=== PATIENT | male | born 1950 | race Caucasian/White ===

== ENCOUNTER 2024-06-02 02:10 | Outpatient (CLI) | payer MEDICARE, SELFPAY ==
--- NOTE | 2024-06-02 14:25 | ST.MBS_ITS ---
Date of Service Date of service: 06/02/24 Time of Service: 15:44 Modified Barium Swallow Study Findings: Video fluoroscopic Swallowing Evaluation (VFSE) / Modified Barium Swallow Study (MBSS) Speech Language Pathology Report Patient referred for VFSE/MBSS from Dr. Mathews ([facility]) given history of resection of SSC of tongue base with feeding tube reliance. 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 From this he developed bilateral hearing loss and peripheral neuropathy. In 2013 he was taken to OR for left segmental mandibulectomy and reconstruction with fibula free flap due to [id number]. 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 In 2023, he presented with new squamous cell carcinoma of R posterior mobile tongue extending into R tongue base. 01/05/2024 underwent glossectomy, neck dissection and flap reconstruction. He has a tracheostomy tube and is followed by [facility] via [facility]. He was cleared by ENT for PO intake on 04/27/2024 but only tolerates liquids at this time and is reliant on feeding tube. He had some wound issues of pharynx and trach site and underwent HBOT during recovery from surgery. Per treating [facility], his trach placement was difficult and reportedly is off-center, making it very uncomfortable to swallow. Although trach has been capped since he was discharged home from surgery, his medical team has opted to leave it in all this time until need for further procedures is fully eliminated, as they feel it would be very difficult to re- trach him. He is now awaiting a pacemaker change at which point ENT will approve him for trach removal. Additional relevant PMHx: Esophageal dysphagia DM2 Memory difficulties Trismus CKD IMPRESSIONS: Swallow safety is impaired; swallow efficiency is impaired. Severe chronic oropharyngeal dysphagia. Characterized by poor/absent posterior lingual transit, poor tongue base retraction, reduced pharyngeal stripping wave and limited UES distension. While there were mild-moderate pharyngeal deficits, hyo-laryngeal movement was relatively well preserved functionally and laryngeal vestibule closure was very strong. While there was some shallow anterior supraglottic penetration, this did not reach the level of the vocal folds and was ejected easily, often spontaneously by swallow completion, or by gentle cued throat clear. Patient relied on posterior head tilt and gradual spillage of liquid bolus into pyriform sinus in order to initiate pharyngeal swallow. Significant post-swallow hyperpharyngeal residue for liquid bolus resulted in need for multiple swallows with extra time to allow residue to descend gradually into pyriforms before able to pass through UES with secondary swallows. For puree bolus, patient was unable to transit this past posterior mobile tongue even with liquid wash and required suction to remove oral residue. Only minimal/negligible amounts of puree were swallowed with the aid of liquid wash despite multiple attempts. Patient may benefit from trials of more slick puree or moderately thick liquids. Patient appears to be at low risk for potential aspiration PNA and/or pulmonary compromise and high risk for malnutrition, moderate risk for dehydration. Diet modification is indicated; non-oral nutrition is indicated. Suspect patient could improve oral intake amounts gradually if working diligently with [facility] on liquid intake/efficiency. May see further improvements with further healing/resolution of edema, removal of trach, and continued therapeutic PO intake with [facility]. Recommend repeat MBSS in 3+ months once trach is removed. Swallow prognosis is guarded given: Positive prognostic factors: Motivation, Family/caregiver support, Negative prognostic factors: Age, Severity, Surgical/anatomical factors, Ineffectiveness of trialed compensatory strategies, and pending patient/caregiver training in risk management as outlined, including use of trialed compensatory strategies. RECOMMENDATIONS: Diet Texture Recommendation for supplemental PO intake:? IDDSI LEVEL SOLIDS 3-Liquidized Solids or 4-[place] Purees (therapeutic trials) LIQUIDS 0-Thin Liquids Please see further details at?[email or web address].iddsi.org [email or web address] MEDICATIONS VIA ENTERAL ROUTE Diet texture modification is per patient's preference; please adjust diet textures at patient's discretion & collaboration with care team. Do not alter medications (e.g., cut)? without advice from your MD or pharmacist. Risk Management Strategies:? Behavioral reflux precautions, including upright position during + 90 mins after meals. Perform posterior head tilt Small sips, approx 10 mL Multiple swallows per bolus (3+) to encourage clearance of pharyngeal stasis/residue When taking multiple sips liquids, perform gentle intermittent throat clear. Control risk factors for aspiration pneumonia via (a) thorough oral hygiene & (b) maintaining physical mobility as tolerated PLAN: Therapy: May consider the following: Targeted Oropharyngeal Exercise per treating [facility], Further Compensatory Strategy Training, Further Training/Education in Risk Management, Further Counseling re: Options for maintaining quality of life in context of dysphagia presentation Goals: Defer to treating clinician Follow-up exam: Recommend repeat VFSE/MBSS in 3+ months. ----- OBJECTIVE Videofluoroscopic Swallow Evaluation (VFSE/MBSS) was conducted in the lateral and [id number] projection by Speech-Language Pathologist, in collaboration with Radiologist, to evaluate oropharyngeal swallow function. Anatomic view under fluoroscopy: Mandibular hardware visible. Trach tube vi sible. Surgical clips visible throughout pharynx and floor of mouth. 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 PO Barium Contrast Trials Oral barium water-soluble contrast was administered as follows: IDDSI Level 0 Varibar thin liquid (40% w/v) IDDSI Level 2 Varibar nectar thick/mildly thick liquid (40% w/v) IDDSI Level 3 Varibar thin honey/liquidised/moderately-thick (40% w/v) IDDSI Level 4 Varibar pudding/pureed/extremely thick (40% w/v) MBSImP Component Scores: COMPONENT Scale SCORE 1 Lip closure (0-4) 1 Resulted in interlabial escape, without progression to anterior lip 2 Hold Position (0-3) 3 Allowed posterior escape of greater than half of the bolus 3 Bolus Preparation (0-4) 4 Solid withheld due to patient safety concerns related to oral impairment 4 Bolus Transport (0-4) 4 Yielded only minimal to no tongue motion 5 Oral Residue (0-4) 3 2 Was the majority of bolus remaining (puree, moderately thick liquid) Was A collection of residue on oral structures (mild thick, thin liquids) 6 Swallow Initiation (0-4) 3 Occurred when the bolus head was in the pyriform sinuses 7 Soft Palate Elevation (0-4) 0 Resulted in no bolus between soft palate and t he pharyngeal wall 8 Laryngeal Elevation (0-3) 1 Was decreased with partial superior movement of thyroid cartilage/partial approximation of arytenoids to epiglottic petiole 9 Anterior Hyoid Motion (0-2) 1 Demonstrated partial anterior movement 10 Epiglottic Movement (0-2) 2 Resulted in no inversion 11 Laryngeal Closure (0-2) 1 Was incomplete with narrow a column of air/contra st in laryngeal vestibule 12 Pharyngeal Stripping Wave (0-2) 1 Was present, but diminished 13 Pharyngeal Contraction (0-3) 1 Was incomplete, with presence of pseudodiverticulae 14 PES Opening (0-3) 1 Demonstrated partial distension/partial duration, with partial obstruction of flow 15 Tongue Base Retraction (0-4) 3 Allowed a wide column of contrast or air between the retracted tongue base and the posterior pharyngeal wall 16 Pharyngeal Residue (0-4) 2 Was a collection of residue within or on pharyngeal structures 17 Esophageal Clearance (0-4) NA Results: COMPONENT Scale SCORE 1 Oral Score (0-18) 16 2 Pharyngeal Score (0-29) 13 3 Esophageal Score (0-4) 0 Penetration-Aspiration Scale: COMPONENT Scale SCORE 1 Thin liquid (1-8) 2 Contrast entered the airway, remained above the vocal folds, and was ejected from the airway. 2 [place] thick (1-8) 2 Contrast entered the airway, remained above the vocal folds, and was ejected from the airway. 3 Honey thick (1-8) 3 Contrast entered the airway, remained above the vocal folds, and was not ejected from the airway. 4 Pudding thick (1-8) 1 Contrast did not enter the airway 5 Cookie (1-8) NA DIGEST: COMPONENT Scale SCORE 1 Thin Max PAS (1-8) 2 Contrast entered the airway, remained above the vocal folds, and was ejected from the airway. 2 [place] Max PAS (1-8) 2 Contrast entered the airway, remained above the vocal folds, and was ejected from the airway. 3 Honey Max PAS (1-8) 3 Contrast entered the airway, remained above the vocal folds, and was not ejected from the airway. 4 Liquid Max PAS (1-8) 3 Maximum PAS Score over all liquid trials 5 Liquid Max Residue (0-3) 1 10 - 49% 6 Pudding Max PAS (1-8) 1 Contrast did not enter the airway 7 Pudding Max Residue (0-3) 2 50 - 90% 8 Cracker Max PAS (1-8) NA 9 Cracker Max Residue (0-3) NA 10 Frequency if PAS >= 3 (0-3) 2 Intermittent (under 50% of trials on a single consistency) 11 Amount if PAS >= 5 (0-1) NA Results: COMPONENT Scale SCORE 1 SAFETY GRADE (0-4) 1 Safety grade for swallowing based on patterns of aspi ration or laryngeal penetration 2 EFFICIENCY GRADE (0-4) 3 Efficiency grade of swallowing based on patterns of pharyngeal residue 3 DIGEST (0-4) 2 Severity grade of pharyngeal dysphagia: 0 - Normal, 1 - Mild, 2 - Moderate, 3 - Severe, 4 - Life threa tening 4 Max Exam PAS (1-8) 3 Maximum PAS Score over all bolus trials 5 Max Exam Residue (0-3) 3 Maximum Exam Residue over all bolus trials Trialed Compensatory Strategies & Outcome: Maneuvers Successful (+) Unsuccessful (-) Postures Successful (+) Unsuccessful (-) 3 second Preparatory Set? ?+/- Chin Tuck Posture? ? Cough? ? Posterior Head tilt?? ?+ ? Reflexive? Cued? Throat Clear? ? Head Tilt to? Reflexive? Left? Cued? ?+ ? Right? ? Saliva swallow? ?+ Head Turn/Rotate to? ? Supraglottic Swallow? Left? ? Super-supraglottic Swallow? Right? ? Bolus Modifications Successful (+) Unsuccessful (-) Delivery/Alternating Consistencies ? Follow with Liquid Wash +/- ? Follow with Solid Bolus? Delivery/Via Straw? ? Reduced Volume? ?+/- Reduce Rate of Intake? ? Increased Viscosity? ?- Other:?? ? Thank you for allowing us to take part in this patient's care. Please feel free to contact the [facility] Speech Language Pathology Department with any questions/concerns.
--- NOTE | 2024-06-02 15:24 | DI.RAD_ITS ---
Exam(s) RF MODIFIED SPEECH BA SWALLOW EXAM: RF MODIFIED SPEECH BA SWALLOW CLINICAL HISTORY: SCC of base of tongue, C01,DYSPHAGIA TECHNIQUE: Modified barium swallow was performed in conjunction with speech pathology. CONTRAST MATERIAL: Multiple consistencies of oral barium contrast were administered. COMPARISON: No exams were available for comparison FINDINGS: Note that this is not a dedicated esophagram, distal esophagus not evaluated. Hardware is noted in the mandible. There are multiple surgical clips in the pharyngeal region. Trac heostomy tube is in place. Mild laryngeal penetration was observed. Mild residue along the anterior pharynx. Significant oral residue with thick consistency. Speech pathology report to follow. IMPRESSION: Mild laryngeal penetration. RADIATION DOSE DELIVERED: Ka,r=24.2 mGy
[2024-06-02] MEDS: Barium Sulfate 81% w/w for Oral Suspension 148 GM BTL PO (15:54)
[2024-06-02] MEDS: Barium Sulfate 40% W/V 1500 CPS 250 ML BTL PO (15:55)
[2024-06-02] MEDS: Barium Sulfate 40% W/V 240 ML BTL PO (15:56)
[2024-06-02] MEDS: Barium Sulfate Oral Paste 40% W/V 230 ML TUBE PO (15:57)
== END 2024-06-02 02:30 ==
PROVIDERS: PCP Family Medicine; Visit Provider Speech-Language Pathologist
DX: C01 Malignant neoplasm of base of tongue (principal); B97.7 Papillomavirus as the cause of diseases classified elsewhere; R13.12 Dysphagia, oropharyngeal phase
CPT/HCPCS: 92526; 74221